=== PATIENT | female | born 1950 | race Hispanic/Latino ===

== ENCOUNTER 2018-08-19 12:29 | Emergency (ER) | payer OTHER ==
[2018-08-19] MEDS ORDERED: PROCHLORPERAZINE EDISYLATE 10 MG/2 ML VIAL ONE (13:26)
== END 2018-08-19 14:31 | disposition home or self-care (01) ==
LOC: EDH 12:29
DX: F41.1 Generalized anxiety disorder (principal); I10 Essential (primary) hypertension; E11.9 Type 2 diabetes mellitus without complications; E78.5 Hyperlipidemia, unspecified; E07.9 Disorder of thyroid, unspecified; Z90.89 Acquired absence of other organs; Z98.890 Other specified postprocedural states
CPT/HCPCS: 82948; 96372; 99284; J0780

== ENCOUNTER 2023-07-08 17:32 | Observation (INO) | payer OTHER ==
[~2023-07-08] VITALS: Ht 152.4 cm; Wt 63.3 kg
[~2023-07-08 17:32] MED LIST: AEC81 PO; AMOX1TAB16 PO; CHLO25TA3 PO; Docusate Sodium 100 Mg Cap PO; HYDR50TA36 PO; LEVO100T4 PO; LISI40TA9 PO; METF-444 PO; PRAV40TA3 PO; RIVA20TA PO
[2023-07-08 18:09] LABS: BASOPHILS # (AUTO) 0.05 K/uL (0.00-0.20); BASOPHILS % (AUTO) 0.5 % (0.0-5.0); EOSINOPHILS % (AUTO) 2.8 % (0.0-8.0); HEMATOCRIT 35.3 % (36-48); IMMATURE GRANULOCYTE ABSOLUTE 0.06 K/uL (0-1); LYMPHOCYTES # (AUTO) 1.4 K/uL (1.0-4.8); MEAN CORPUSCULAR HEMOGLOBIN 29.9 pg (27.0-33.0); MEAN CORPUSCULAR HGB CONC 33.7 g/dL (32.0-36.0); MEAN CORPUSCULAR VOLUME 88.7 fL (79-99); MONOCYTES % (AUTO) 8.9 % (3.0-13.0); NEUTROPHILS # (AUTO) 8.1 K/uL (1.8-7.7); NEUTROPHILS % (AUTO) 74.2 % (40.0-77.0); PLATELET COUNT (AUTO) 291 K/uL (130-400); RED BLOOD CELL COUNT(AUTO) 3.98 MIL/uL (4.00-5.50); RED CELL DISTRIBUTION WIDTH 12.5 % (11.0-15.5); WHITE BLOOD COUNT (AUTO) 10.9 K/uL (4.8-10.8)
[2023-07-08 18:21] LABS: CREATININE 1.6 mg/dL (0.5-1.5); POTASSIUM 3.8 mmol/L (3.5-5.1)
[2023-07-08 18:25] LABS: ALBUMIN 3.6 g/dL (3.5-5.0); BILIRUBIN,TOTAL 0.3 mg/dL (0.2-1.0); TOTAL PROTEIN, SERUM 7.2 g/dL (6.0-8.3)
[2023-07-08 19:55] LABS: APPEARANCE,URINE CLEAR (CLEAR); BILIRUBIN,URINE NEGATIVE (NEGATIVE); COLOR,URINE LIGHT-YELLOW (YELLOW); GLUCOSE, URINE (UA) NEGATIVE (NEGATIVE); KETONES,URINE NEGATIVE (NEGATIVE); LEUKOCYTE ESTERASE ,URINE NEGATIVE Leu/uL (NEGATIVE); NITRATE,URINE NEGATIVE (NEGATIVE); OCCULT BLOOD,URINE NEGATIVE (NEGATIVE); PROTEIN,URINE NEGATIVE (NEGATIVE); UROBILINOGEN,URINE 0.2 mg/dL (0.2-1.0)
[2023-07-08 20:09] LABS: ADD UA MICROSCOPIC NO
[2023-07-08] MEDS ORDERED: 0.9%NACL 1000ML 1,000 ML IV ONE (21:00)
[2023-07-08 21:26] LABS: RAPID GROUP A STREP negative (NEGATIVE)
[2023-07-08 21:32] LABS: SARS-CoV-2, RNA, NAAT NEGATIVE SARS CoV-2 (NEGATIVE)
[2023-07-08 21:37] LABS: INFLUENZA TYPE A Negative For Type A (NEGATIVE); INFLUENZA TYPE B Negative For Type B (NEGATIVE)
[2023-07-08] MEDS: CEFTRIAXONE 2GM VIAL IVPB SCH (23:07)
[2023-07-08] MEDS: METRONIDAZOLE 500MG/100ML BAG 100 ML IVPB SCH (23:07)
[2023-07-08] MEDS ORDERED: HYDRALAZINE 20MG/ML VIAL IV PRN (23:30)
[2023-07-08] MEDS ORDERED: MORPHINE 2 MG SYG IVP PRN (23:30)
[2023-07-08] MEDS ORDERED: ONDANSETRON 4MG INJ IVP PRN (23:30)
[2023-07-08] MEDS ORDERED: ALBUTEROL 0.083% 2.5 MG/3 ML INH IH PRN (23:30)
[2023-07-09] MEDS: LACTATED RINGERS 1000ML 1,000 ML IV SCH ×3 (00:19→19:30)
[2023-07-09 06:17] LABS: BASOPHILS # (AUTO) 0.02 K/uL (0.00-0.20); BASOPHILS % (AUTO) 0.3 % (0.0-5.0); EOSINOPHILS # (AUTO) 0.09 K/uL (0.00-0.70); EOSINOPHILS % (AUTO) 1.2 % (0.0-8.0); HEMATOCRIT 28.9 % (36-48); IMMATURE GRANULOCYTE ABSOLUTE 0.04 K/uL (0-1); LYMPHOCYTES # (AUTO) 1.1 K/uL (1.0-4.8); LYMPHOCYTES % (AUTO) 14.4 % (21.0-51.0); MEAN CORPUSCULAR HEMOGLOBIN 28.9 pg (27.0-33.0); MEAN CORPUSCULAR HGB CONC 33.2 g/dL (32.0-36.0); MONOCYTES # (AUTO) 0.8 K/uL (0.1-1.0); MONOCYTES % (AUTO) 11.4 % (3.0-13.0); NEUTROPHILS # (AUTO) 5.3 K/uL (1.8-7.7); NEUTROPHILS % (AUTO) 72.2 % (40.0-77.0); PLATELET COUNT (AUTO) 262 K/uL (130-400); RED BLOOD CELL COUNT(AUTO) 3.32 MIL/uL (4.00-5.50); RED CELL DISTRIBUTION WIDTH 12.7 % (11.0-15.5); WHITE BLOOD COUNT (AUTO) 7.4 K/uL (4.8-10.8)
[2023-07-09 06:40] LABS: CREATININE 1.2 mg/dL (0.5-1.5); MAGNESIUM 2.1 mg/dL (1.80-2.40); PHOSPHORUS 4.8 mg/dL (2.5-4.9); POTASSIUM 3.8 mmol/L (3.5-5.1)
[2023-07-09] MEDS ORDERED: POTASSIUM CHLORIDE 10% ELIXIR 20 MEQ/15 ML UDCUP PO PRN (08:30)
[2023-07-09] MEDS ORDERED: MAGNESIUM 2GM PREMIX 50ML 50 ML IV PRN (08:30)
[2023-07-09] MEDS ORDERED: GLUCAGON 1MG KIT 1 MG ML IM PRN (08:30)
[2023-07-09] MEDS ORDERED: DEXTROSE 50%-WATER 50 ML DISP.SYRIN IV PRN (08:30)
[2023-07-09] MEDS ORDERED: POTASSIUM CHLORIDE 20MEQ/100ML 100 ML IV PRN (08:30)
[2023-07-09] MEDS: METRONIDAZOLE 500MG/100ML BAG 100 ML IVPB SCH ×3 (08:32→22:23)
[2023-07-09] MEDS: PANTOPRAZOLE 40 MG/VIAL IVP SCH (08:32)
[2023-07-09 12:00] VITALS: BP 126/49; PULSE 64; RESP 18
[2023-07-09 16:00] VITALS: BP 109/44; PULSE 68; RESP 16
[2023-07-09] MEDS: CEFTRIAXONE 2GM VIAL IVPB SCH (22:23)
[2023-07-09 22:27] VITALS: BP 123/49; PULSE 59; RESP 18
[2023-07-10 04:08] VITALS: BP 112/45; PULSE 50; RESP 18
[2023-07-10] MEDS: LACTATED RINGERS 1000ML 1,000 ML IV SCH (05:01)
[2023-07-10 05:24] LABS: HEMATOCRIT 26.8 % (36-48); MEAN CORPUSCULAR HEMOGLOBIN 29.7 pg (27.0-33.0); MEAN CORPUSCULAR HGB CONC 33.2 g/dL (32.0-36.0); MEAN CORPUSCULAR VOLUME 89.3 fL (79-99); RED CELL DISTRIBUTION WIDTH 12.8 % (11.0-15.5); WHITE BLOOD COUNT (AUTO) 8.5 K/uL (4.8-10.8)
[2023-07-10 05:48] LABS: CREATININE 1.2 mg/dL (0.5-1.5); MAGNESIUM 1.9 mg/dL (1.80-2.40); PHOSPHORUS 3.4 mg/dL (2.5-4.9); POTASSIUM 3.4 mmol/L (3.5-5.1)
[2023-07-10] MEDS: METRONIDAZOLE 500MG/100ML BAG 100 ML IVPB SCH (06:25)
[2023-07-10] MEDS ORDERED: LEVOTHYROXINE 100 MCG TABLET PO SCH (06:30)
[2023-07-10 07:13] VITALS: BP 120/58; PULSE 50; RESP 18
[2023-07-10 08:00] VITALS: O2SAT 100
[2023-07-10] MEDS ORDERED: RIVAROXABAN 20 MG TABLET PO SCH (09:00)
[2023-07-10] MEDS ORDERED: HYDRALAZINE 25MG TABLET PO SCH (09:00)
[2023-07-10] MEDS ORDERED: DOCUSATE SODIUM 100 MG PO SCH (09:00)
[2023-07-10] MEDS ORDERED: DOCUSATE SODIUM 100 MG CAP PO SCH (09:00)
[2023-07-10] MEDS ORDERED: NON-FORMULARY MEDICATION 1 EACH (Pravastatin Sodium 1 TAB) PO SCH (09:00)
[2023-07-10] MEDS ORDERED: ASPIRIN 81 MG EC TAB PO SCH (09:00)
[2023-07-10] MEDS ORDERED: LISINOPRIL 40 MG TABLET PO SCH (09:00)
[2023-07-10] MEDS ORDERED: HYDRALAZINE HCL PO SCH (09:00)
[2023-07-10] MEDS: KCL 20 MEQ ERTAB PO PRN ×2 (09:39→11:38)
[2023-07-10] MEDS: PANTOPRAZOLE 40 MG/VIAL IVP SCH (09:39)
[2023-07-10] MEDS ORDERED: METR-172 PO (10:50)
[2023-07-10] MEDS ORDERED: AMOX1TAB16 PO (10:50)
[2023-07-10 11:57] VITALS: BP 127/54; PULSE 51; RESP 18
[2023-07-10] MEDS ORDERED: ATORVASTATIN 10 MG TABLET PO SCH (21:00)
== END 2023-07-10 13:30 | disposition home or self-care (01) ==
LOC: EDH 17:32 → EDHIP 23:14 → 3AH 07-09 21:23
PROVIDERS: ADMIT Internal Medicine Critical Care Medicine; ATTEND Internal Medicine Critical Care Medicine
DX: K52.9 Noninfective gastroenteritis and colitis, unspecified (principal); Z20.822 Contact with and (suspected) exposure to COVID-19; E86.1 Hypovolemia; N17.9 Acute kidney failure, unspecified; E11.65 Type 2 diabetes mellitus with hyperglycemia; I10 Essential (primary) hypertension; E78.00 Pure hypercholesterolemia, unspecified; I48.91 Unspecified atrial fibrillation; I95.9 Hypotension, unspecified; E03.9 Hypothyroidism, unspecified; E86.0 Dehydration; D64.9 Anemia, unspecified; Z79.01 Long term (current) use of anticoagulants; Z79.899 Other long term (current) drug therapy; Z98.890 Other specified postprocedural states; Z98.891 History of uterine scar from previous surgery; Z79.82 Long term (current) use of aspirin
CPT/HCPCS: 96365; 96368; 99285; 84484; 80053; 83690; 85025 ×2; 87880; 87804 ×2; 81003; 36415 ×3; 87635; 71045; 74176; 93005; 96361 ×3; 96366 ×3; 96375; 96367 ×2; 83735 ×2; 84100 ×2; 80048 ×2; 87040 ×2; 84145; 96376; 85027; 82948; G0378 ×38; C9803; J0696 ×2; J3490 ×5; C9113 ×2; J3475; J7120

== ENCOUNTER → 2023-08-07 | Outpatient (CLI) | payer OTHER ==
[~2023-08-07] MED LIST changes: +METR-172 PO; +REGADENOSON 0.4 MG/5 ML PF SYG IVP ONE
== END | disposition home or self-care (01) ==
LOC: SHCH 08:15
PROVIDERS: ATTEND Internal Medicine Cardiovascular Disease
DX: I48.0 Paroxysmal atrial fibrillation (principal); I48.92 Unspecified atrial flutter
CPT/HCPCS: 78452; 96374; 93017; J2785; A9500 ×2